=== PATIENT | female | born 1995 | race Caucasian/White ===

== ENCOUNTER 2017-04-09 00:14 | Inpatient (IN) | payer OTHER ==
[~2017-04-09] VITALS: Ht 157.5 cm; Wt 56.8 kg
[~2017-04-09 00:14] MED LIST: DOXY100C43 PO; METR250T PO; NO HOME MEDS; TRAM50TA2 PO
[2017-04-09] MEDS ORDERED: ondansetron/PF 4mg/2ml inj IV ONE (00:50)
[2017-04-09] MEDS ORDERED: morphine 4 MG/ML inj SYRINge IV ONE (00:50)
[2017-04-09] MEDS ORDERED: NO HOME MEDS (00:59)
[2017-04-09 01:13] LABS: BASOPHILS % (AUTO) 0.4 % (0-1); EOSINOPHILS % (AUTO) 0.2 % (0-6); HEMATOCRIT 38.1 % (35.0-45.0); HEMOGLOBIN 13.3 g/dl (12.0-16.0); LYMPHOCYTES % (AUTO) 14.4 % (21-51); MEAN CORPUSCULAR VOLUME 88.5 FL (78-98); MEAN PLATELET VOLUME 8.6 FL (7.4-10.4); MONOCYTES # (AUTO) 0.4 X10'3 (0-0.9); MONOCYTES % (AUTO) 5.5 % (2-12); NEUTROPHILS # (AUTO) 5.8 X10'3 (1.8-7.7); NEUTROPHILS % (AUTO) 79.5 % (42-75); PLATELET COUNT 219 X10'3 (140-440); RED CELL DISTRIBUTION WIDTH 12.5 % (11.5-14.5); WHITE BLOOD COUNT 7.2 X10'3 (4.5-11.0)
[2017-04-09 01:25] LABS: ALANINE AMINOTRANSFERASE 25 U/L (12-78); ALBUMIN 3.9 G/DL (3.4-5.0); ALBUMIN/GLOBULIN RATIO 1.3 (1.1-1.5); ALKALINE PHOSPHATASE 45 IU/L (20-180); ANION GAP 9 (8-16); ASPARTATE AMINO TRANSFERASE 34 U/L (10-37); BILIRUBIN,TOTAL 0.7 MG/DL (0.1-1.0); BLOOD UREA NITROGEN 8 MG/DL (7-18); BUN/CREATININE RATIO 9.1 (6.6-38.0); CALCIUM 8.5 MG/DL (8.5-10.1); CHLORIDE 107 MMOL/L (99-107); CREATININE 0.88 MG/DL (0.40-0.90); GLUCOSE 103 MG/DL (70-104); POTASSIUM 3.9 MMOL/L (3.5-5.1); SODIUM 141 MMOL/L (135-145); TOTAL CARBON DIOXIDE 25.4 MMOL/L (24-32); eGFR 82 ML/MIN
[2017-04-09] MEDS ORDERED: normal saline 1000ml 1,000 ML IV ONE (01:35)
[2017-04-09 01:59] LABS: TOTAL CELLS COUNTED 100
[2017-04-09 02:00] LABS: PLATELET ESTIMATE NORMAL
[2017-04-09] MEDS ORDERED: HYDROcodone/acetaminophen 10/325mg tab PO PRN (04:40)
[2017-04-09] MEDS ORDERED: diphenhydrAMINE 50 mg/ml inj IV PRN (04:40)
[2017-04-09] MEDS ORDERED: magnesium hydroxide 30ml (MOM) UD suspension PO PRN (04:40)
[2017-04-09] MEDS ORDERED: acetaminophen 325mg tablet PO PRN ×2 (04:40)
[2017-04-09] MEDS ORDERED: acetaminophen 650mg rectal suppository RC PRN (04:40)
[2017-04-09] MEDS ORDERED: morphine 2 MG/ML inj. syringe IV PRN ×2 (04:40)
[2017-04-09] MEDS ORDERED: mag hydrox/Alum hydrox/simeth 30ml oral suspension PO PRN (04:40)
[2017-04-09] MEDS ORDERED: HYDROcodone/acetaminophen 5mg/325mg tablet PO PRN (04:40)
[2017-04-09] MEDS ORDERED: diphenhydrAMINE 25mg capsule PO PRN (04:40)
[2017-04-09] MEDS ORDERED: bisacodyl 10mg suppository rectal RC PRN (04:40)
[2017-04-09] MEDS ORDERED: normal saline 1000ml 1,000 ML IVB ONE (04:46)
[2017-04-09] MEDS ORDERED: diatrozoate meglu/diatrozoate sod (37% iodine) 120ML oral solution PO ONE (04:50)
[2017-04-09] MEDS ORDERED: diatrozoate meglu/diatrozoate sod (37% iodine) 120ML oral solution ONE (05:02)
[2017-04-09] MEDS: normal saline 1000ml 1,000 ML IV SCH ×2 (05:10→16:17)
[2017-04-09 05:12] LABS: HEMOGLOBIN A1C 5.2 % (4.5-6.2)
[2017-04-09] MEDS: HYDROmorphone inj. 0.5 MG/0.5 ML DISP.SYRIN IV PRN ×5 (05:20→22:56)
[2017-04-09 05:21] LABS: CREATINE KINASE 385 U/L (26-192); LIPASE 90 U/L (73-393); MAGNESIUM 1.7 MG/DL (1.5-2.4); PHOSPHORUS 3.5 MG/DL (2.3-4.5)
[2017-04-09] MEDS: lactobacillus rhamnosus 10,000 MMU CELLS/CAPSULE PO SCH ×2 (07:30→17:41)
[2017-04-09] MEDS ORDERED: piperacillin/tazo 3.375gm/50ml 50 ML IV SCH (08:00)
[2017-04-09] MEDS ORDERED: piperacillin/tazo 4.5gm/100ml 100 ML IV SCH (08:00)
[2017-04-09] MEDS ORDERED: cefoxitin sod inj 2,000 MG in normal saline 100ml IV soln 100 ML IV SCH (08:00)
[2017-04-09] MEDS: pantoprazole 40 MG vial IV SCH (08:38)
[2017-04-09] MEDS: doxycycline hyclate 100mg tablet.DR PO SCH ×2 (08:38→17:41)
[2017-04-09] MEDS: docusate sod 100mg capsule PO SCH ×2 (08:38→20:08)
[2017-04-09 13:08] LABS: BASOPHILS % (AUTO) 0 % (0-1); EOSINOPHILS % (AUTO) 0 % (0-6); HEMATOCRIT 33.9 % (35.0-45.0); HEMOGLOBIN 11.6 g/dl (12.0-16.0); LYMPHOCYTES # (AUTO) 0.6 X10'3 (1.1-4.8); LYMPHOCYTES % (AUTO) 5.4 % (21-51); MEAN CORPUSCULAR HEMOGLOBIN 30.6 PG (27.0-31.0); MEAN CORPUSCULAR HGB CONC 34.3 % (33.0-36.5); MEAN CORPUSCULAR VOLUME 89.3 FL (78-98); MEAN PLATELET VOLUME 8.1 FL (7.4-10.4); MONOCYTES # (AUTO) 0.2 X10'3 (0-0.9); MONOCYTES % (AUTO) 1.4 % (2-12); NEUTROPHILS # (AUTO) 10.8 X10'3 (1.8-7.7); NEUTROPHILS % (AUTO) 93.2 % (42-75); PLATELET COUNT 175 X10'3 (140-440); RED CELL DISTRIBUTION WIDTH 13.3 % (11.5-14.5); WHITE BLOOD COUNT 11.5 X10'3 (4.5-11.0)
[2017-04-09 13:26] LABS: ALANINE AMINOTRANSFERASE 24 U/L (12-78); ALBUMIN 2.9 G/DL (3.4-5.0); ALKALINE PHOSPHATASE 32 IU/L (20-180); ANION GAP 9 (8-16); ASPARTATE AMINO TRANSFERASE 27 U/L (10-37); BLOOD UREA NITROGEN 7 MG/DL (7-18); BUN/CREATININE RATIO 9.3 (6.6-38.0); CALCIUM 7.8 MG/DL (8.5-10.1); CHLORIDE 108 MMOL/L (99-107); CREATININE 0.75 MG/DL (0.40-0.90); GLUCOSE 87 MG/DL (70-104); POTASSIUM 4.1 MMOL/L (3.5-5.1); SODIUM 139 MMOL/L (135-145); TOTAL CARBON DIOXIDE 21.6 MMOL/L (24-32); TOTAL PROTEIN 5.8 G/DL (6.4-8.2); eGFR > 90 ML/MIN
[2017-04-09 15:30] VITALS: BP 94/58
[2017-04-09 20:00] VITALS: BP 98/56
[2017-04-09] MEDS: ceFOXitin 2 GM ADDvantage bag 100 ML IV SCH (20:05)
[2017-04-09] MEDS ORDERED: temazepam 15mg capsule PO PRN (21:00)
[2017-04-09] MEDS ORDERED: normal saline 1000ml 1,000 ML IV SCH (21:15)
[2017-04-09] MEDS ORDERED: normal saline 500ml IV soln 500 ML IV ONE (21:30)
[2017-04-09] MEDS ORDERED: LORazepam 2 mg/ml vial IV PRN (22:50)
[2017-04-10] VITALS (19 sets, daily range): BP systolic 89–102; BP diastolic 44–56
[2017-04-10] MEDS: normal saline 1000ml 1,000 ML IV SCH ×7 (00:36→20:01)
[2017-04-10] MEDS: ceFOXitin 2 GM ADDvantage bag 100 ML IV SCH ×2 (02:24→08:00)
[2017-04-10] MEDS: HYDROmorphone inj. 0.5 MG/0.5 ML DISP.SYRIN IV PRN ×3 (03:20→13:41)
[2017-04-10 06:10] LABS: BASOPHILS % (AUTO) 0.1 % (0-1); EOSINOPHILS % (AUTO) 0 % (0-6); HEMATOCRIT 30.3 % (35.0-45.0); HEMOGLOBIN 10.6 g/dl (12.0-16.0); LYMPHOCYTES # (AUTO) 0.5 X10'3 (1.1-4.8); LYMPHOCYTES % (AUTO) 4.5 % (21-51); MEAN CORPUSCULAR HEMOGLOBIN 31.1 PG (27.0-31.0); MEAN CORPUSCULAR HGB CONC 34.9 % (33.0-36.5); MEAN CORPUSCULAR VOLUME 89.1 FL (78-98); MEAN PLATELET VOLUME 8.9 FL (7.4-10.4); MONOCYTES # (AUTO) 0.5 X10'3 (0-0.9); MONOCYTES % (AUTO) 4.1 % (2-12); NEUTROPHILS # (AUTO) 10.9 X10'3 (1.8-7.7); NEUTROPHILS % (AUTO) 91.3 % (42-75); PLATELET COUNT 173 X10'3 (140-440); RED CELL DISTRIBUTION WIDTH 13.2 % (11.5-14.5)
[2017-04-10 06:32] LABS: ALANINE AMINOTRANSFERASE 16 U/L (12-78); ALBUMIN 2.3 G/DL (3.4-5.0); ALBUMIN/GLOBULIN RATIO 0.8 (1.1-1.5); ALKALINE PHOSPHATASE 37 IU/L (20-180); ANION GAP 12 (8-16); ASPARTATE AMINO TRANSFERASE 21 U/L (10-37); BILIRUBIN,TOTAL 0.4 MG/DL (0.1-1.0); BLOOD UREA NITROGEN 8 MG/DL (7-18); BUN/CREATININE RATIO 9.4 (6.6-38.0); CALCIUM 7.7 MG/DL (8.5-10.1); CHLORIDE 108 MMOL/L (99-107); CHOL/HDL RATIO 1.9 (0.00-4.99); CHOLESTEROL 83 MG/DL (0-200); CREATINE KINASE 111 U/L (26-192); CREATININE 0.85 MG/DL (0.40-0.90); GLUCOSE 82 MG/DL (70-104); HDL CHOLESTEROL 43 MG/DL (35-60); LDL CHOLESTEROL 20 MG/DL (50-100); POTASSIUM 3.9 MMOL/L (3.5-5.1); SODIUM 139 MMOL/L (135-145); TOTAL CARBON DIOXIDE 18.7 MMOL/L (24-32); TOTAL PROTEIN 5.2 G/DL (6.4-8.2); TRIGLYCERIDES 51 MG/DL (20-135); eGFR 85 ML/MIN
[2017-04-10] MEDS ORDERED: BUPIVAcaine/PF 2.5 mg/ml (0.25%) 30ml vial ONE (06:32)
[2017-04-10 07:10] LABS: URINE HCG NEGATIVE (NEG)
[2017-04-10] MEDS: lactobacillus rhamnosus 10,000 MMU CELLS/CAPSULE PO SCH ×2 (07:30→17:30)
[2017-04-10] MEDS: doxycycline hyclate 100mg tablet.DR PO SCH ×2 (07:30→17:30)
[2017-04-10] MEDS ORDERED: sevoflurane 250ml liquid IH ONE (07:45)
[2017-04-10] MEDS ORDERED: midazolam 2 mg/2 ml injection ONE (07:46)
[2017-04-10] MEDS ORDERED: fentaNYL/PF 50MCG/1 ML 2ML syringe ONE ×2 (07:46→08:33)
[2017-04-10] MEDS ORDERED: rocuronium 10mg/ml inj IV ONE (07:55)
[2017-04-10] MEDS ORDERED: propofol inj 20 ML IV ONE (07:55)
[2017-04-10] MEDS ORDERED: LIDOcaine 2% (20mg/ml) 5ml vial ONE (07:55)
[2017-04-10] MEDS: docusate sod 100mg capsule PO SCH ×2 (08:00→20:00)
[2017-04-10] MEDS: pantoprazole 40 MG vial IV SCH (08:00)
[2017-04-10] MEDS ORDERED: metroNIDAZOLE-Flagyl 500mg/NS 100ML IVPB IV STA (08:22)
[2017-04-10] MEDS ORDERED: neostigmine methylsulfate 1 MG/ML 10ml vial ONE (08:26)
[2017-04-10] MEDS ORDERED: ondansetron/PF 4mg/2ml inj ONE (08:26)
[2017-04-10] MEDS ORDERED: glycopyrrolate 0.2mg/ml inj ONE (08:26)
[2017-04-10] MEDS ORDERED: morphine 2 MG/ML inj. syringe IV PRN ×2 (09:15)
[2017-04-10] MEDS ORDERED: meperidine/PF 50mg/ml syringe IV PRN ×3 (09:15)
[2017-04-10] MEDS ORDERED: proCHLORperazine 10 MG/2 ml inj IV PRN (09:15)
[2017-04-10] MEDS ORDERED: ringers solution, lacted 1,000 ML IV SCH (09:15)
[2017-04-10] MEDS ORDERED: ondansetron/PF 4mg/2ml inj IV PRN (09:15)
[2017-04-10] MEDS: metroNIDAZOLE-Flagyl 500mg/NS 100 ML IV SCH ×2 (13:50→19:58)
[2017-04-10] MEDS: HYDROmorphone/NS 1 mg/ml CADD 50 ML IV SCH ×3 (19:10→23:00)
[2017-04-11] VITALS: BP 100/69
[2017-04-11] MEDS: HYDROmorphone/NS 1 mg/ml CADD 50 ML IV SCH ×12 (01:00→22:56)
[2017-04-11] MEDS: metroNIDAZOLE-Flagyl 500mg/NS 100 ML IV SCH ×3 (02:00→14:23)
[2017-04-11] MEDS: normal saline 1000ml 1,000 ML IV SCH ×3 (04:22→22:48)
[2017-04-11 05:00] VITALS: BP 101/52
[2017-04-11 06:01] LABS: BASOPHILS % (AUTO) 0.2 % (0-1); EOSINOPHILS % (AUTO) 0.1 % (0-6); HEMATOCRIT 30.7 % (35.0-45.0); HEMOGLOBIN 10.4 g/dl (12.0-16.0); LYMPHOCYTES # (AUTO) 0.9 X10'3 (1.1-4.8); LYMPHOCYTES % (AUTO) 8.4 % (21-51); MEAN CORPUSCULAR HEMOGLOBIN 30.4 PG (27.0-31.0); MEAN CORPUSCULAR HGB CONC 33.8 % (33.0-36.5); MEAN CORPUSCULAR VOLUME 89.9 FL (78-98); MONOCYTES # (AUTO) 0.6 X10'3 (0-0.9); MONOCYTES % (AUTO) 6.2 % (2-12); NEUTROPHILS # (AUTO) 8.7 X10'3 (1.8-7.7); NEUTROPHILS % (AUTO) 85.1 % (42-75); PLATELET COUNT 179 X10'3 (140-440); RED BLOOD COUNT 3.42 X10'6 (4.20-5.60); RED CELL DISTRIBUTION WIDTH 13.3 % (11.5-14.5); WHITE BLOOD COUNT 10.3 X10'3 (4.5-11.0)
[2017-04-11 06:41] LABS: ALANINE AMINOTRANSFERASE 19 U/L (12-78); ALBUMIN/GLOBULIN RATIO 0.6 (1.1-1.5); ALKALINE PHOSPHATASE 66 IU/L (20-180); ANION GAP 14 (8-16); ASPARTATE AMINO TRANSFERASE 20 U/L (10-37); BILIRUBIN,TOTAL 0.4 MG/DL (0.1-1.0); BLOOD UREA NITROGEN 8 MG/DL (7-18); BUN/CREATININE RATIO 12.3 (6.6-38.0); CALCIUM 7.2 MG/DL (8.5-10.1); CHLORIDE 108 MMOL/L (99-107); CREATININE 0.65 MG/DL (0.40-0.90); GLUCOSE 74 MG/DL (70-104); POTASSIUM 3.7 MMOL/L (3.5-5.1); SODIUM 138 MMOL/L (135-145); TOTAL CARBON DIOXIDE 15.6 MMOL/L (24-32); TOTAL PROTEIN 5.1 G/DL (6.4-8.2); eGFR > 90 ML/MIN
[2017-04-11] MEDS: doxycycline hyclate 100mg tablet.DR PO SCH ×2 (08:47→18:51)
[2017-04-11] MEDS: docusate sod 100mg capsule PO SCH ×2 (08:47→20:26)
[2017-04-11] MEDS: lactobacillus rhamnosus 10,000 MMU CELLS/CAPSULE PO SCH ×2 (08:47→18:52)
[2017-04-11] MEDS: pantoprazole 40 MG vial IV SCH (08:47)
[2017-04-11] MEDS: ondansetron/PF 4mg/2ml inj IV PRN ×2 (17:21→22:48)
[2017-04-11 20:00] VITALS: BP 115/65
[2017-04-11] MEDS: metroNIDAZOLE 500mg tablet PO SCH (20:26)
[2017-04-12] VITALS: BP 111/72
[2017-04-12] MEDS: HYDROmorphone/NS 1 mg/ml CADD 50 ML IV SCH ×12 (01:00→23:00)
[2017-04-12] MEDS: metroNIDAZOLE 500mg tablet PO SCH ×3 (01:05→15:24)
[2017-04-12 06:28] LABS: BASOPHILS % (AUTO) 0.2 % (0-1); EOSINOPHILS # (AUTO) 0.1 X10'3 (0-0.9); EOSINOPHILS % (AUTO) 1.2 % (0-6); HEMATOCRIT 31.8 % (35.0-45.0); HEMOGLOBIN 10.9 g/dl (12.0-16.0); LYMPHOCYTES # (AUTO) 0.8 X10'3 (1.1-4.8); LYMPHOCYTES % (AUTO) 8.9 % (21-51); MEAN CORPUSCULAR HEMOGLOBIN 30.4 PG (27.0-31.0); MEAN CORPUSCULAR HGB CONC 34.4 % (33.0-36.5); MEAN CORPUSCULAR VOLUME 88.4 FL (78-98); MEAN PLATELET VOLUME 8.3 FL (7.4-10.4); MONOCYTES # (AUTO) 0.9 X10'3 (0-0.9); MONOCYTES % (AUTO) 9.4 % (2-12); NEUTROPHILS # (AUTO) 7.6 X10'3 (1.8-7.7); NEUTROPHILS % (AUTO) 80.3 % (42-75); PLATELET COUNT 208 X10'3 (140-440); RED BLOOD COUNT 3.59 X10'6 (4.20-5.60); RED CELL DISTRIBUTION WIDTH 13.4 % (11.5-14.5); WHITE BLOOD COUNT 9.5 X10'3 (4.5-11.0)
[2017-04-12 07:05] LABS: ALANINE AMINOTRANSFERASE 20 U/L (12-78); ALBUMIN 2.1 G/DL (3.4-5.0); ALBUMIN/GLOBULIN RATIO 0.6 (1.1-1.5); ALKALINE PHOSPHATASE 63 IU/L (20-180); ANION GAP 16 (8-16); ASPARTATE AMINO TRANSFERASE 19 U/L (10-37); BILIRUBIN,TOTAL 0.3 MG/DL (0.1-1.0); BLOOD UREA NITROGEN 6 MG/DL (7-18); BUN/CREATININE RATIO 9.5 (6.6-38.0); CALCIUM 7.5 MG/DL (8.5-10.1); CHLORIDE 108 MMOL/L (99-107); CREATININE 0.63 MG/DL (0.40-0.90); GLUCOSE 81 MG/DL (70-104); POTASSIUM 3.5 MMOL/L (3.5-5.1); SODIUM 138 MMOL/L (135-145); TOTAL PROTEIN 5.4 G/DL (6.4-8.2); eGFR > 90 ML/MIN
[2017-04-12] MEDS ORDERED: HYDROcodone/acetaminophen 5mg/325mg tablet PO PRN (07:10)
[2017-04-12 07:23] VITALS: BP 105/64
[2017-04-12] MEDS ORDERED: pantoprazole 40mg Tablet.DR PO SCH (07:30)
[2017-04-12 07:32] LABS: TOTAL CARBON DIOXIDE 14.1 MMOL/L (24-32)
[2017-04-12] MEDS: ondansetron/PF 4mg/2ml inj IV PRN ×3 (09:17→20:01)
[2017-04-12] MEDS: pantoprazole 40 MG vial IV SCH (09:17)
[2017-04-12] MEDS: doxycycline hyclate 100mg tablet.DR PO SCH ×2 (09:24→17:15)
[2017-04-12] MEDS: docusate sod 100mg capsule PO SCH ×2 (09:24→20:00)
[2017-04-12] MEDS: lactobacillus rhamnosus 10,000 MMU CELLS/CAPSULE PO SCH ×2 (09:24→20:52)
[2017-04-12 11:35] VITALS: BP 95/59
[2017-04-12] MEDS: normal saline 1000ml 1,000 ML IV SCH (12:19)
[2017-04-12 20:00] VITALS: BP 109/66
[2017-04-13] VITALS: BP 97/61
[2017-04-13] MEDS: HYDROmorphone/NS 1 mg/ml CADD 50 ML IV SCH ×6 (01:00→11:00)
[2017-04-13] MEDS: metroNIDAZOLE-Flagyl 500mg/NS 100 ML IV SCH ×4 (02:13→19:31)
[2017-04-13 05:19] LABS: BASOPHILS % (AUTO) 0.1 % (0-1); EOSINOPHILS # (AUTO) 0.1 X10'3 (0-0.9); EOSINOPHILS % (AUTO) 1.9 % (0-6); HEMATOCRIT 31.9 % (35.0-45.0); LYMPHOCYTES % (AUTO) 16.2 % (21-51); MEAN CORPUSCULAR HEMOGLOBIN 30.7 PG (27.0-31.0); MEAN CORPUSCULAR HGB CONC 34.5 % (33.0-36.5); MEAN CORPUSCULAR VOLUME 88.8 FL (78-98); MEAN PLATELET VOLUME 7.5 FL (7.4-10.4); MONOCYTES # (AUTO) 0.9 X10'3 (0-0.9); MONOCYTES % (AUTO) 13.3 % (2-12); NEUTROPHILS # (AUTO) 4.4 X10'3 (1.8-7.7); NEUTROPHILS % (AUTO) 68.5 % (42-75); PLATELET COUNT 257 X10'3 (140-440); RED BLOOD COUNT 3.59 X10'6 (4.20-5.60); RED CELL DISTRIBUTION WIDTH 13.1 % (11.5-14.5); WHITE BLOOD COUNT 6.4 X10'3 (4.5-11.0)
[2017-04-13 06:03] LABS: ALBUMIN 2.2 G/DL (3.4-5.0); ALBUMIN/GLOBULIN RATIO 0.6 (1.1-1.5); ALKALINE PHOSPHATASE 48 IU/L (20-180); ANION GAP 18 (8-16); ASPARTATE AMINO TRANSFERASE 19 U/L (10-37); BILIRUBIN,TOTAL 0.3 MG/DL (0.1-1.0); BLOOD UREA NITROGEN 6 MG/DL (7-18); BUN/CREATININE RATIO 8.7 (6.6-38.0); CHLORIDE 109 MMOL/L (99-107); CREATININE 0.69 MG/DL (0.40-0.90); GLUCOSE 83 MG/DL (70-104); POTASSIUM 3.4 MMOL/L (3.5-5.1); SODIUM 141 MMOL/L (135-145); TOTAL PROTEIN 5.8 G/DL (6.4-8.2); eGFR > 90 ML/MIN
[2017-04-13 06:10] LABS: TOTAL CARBON DIOXIDE 14.5 MMOL/L (24-32)
[2017-04-13 06:33] LABS: ALANINE AMINOTRANSFERASE 14 U/L (12-78)
[2017-04-13] MEDS: pantoprazole 40 MG vial IV SCH (07:56)
[2017-04-13] MEDS: docusate sod 100mg capsule PO SCH ×2 (07:57→19:33)
[2017-04-13] MEDS: lactobacillus rhamnosus 10,000 MMU CELLS/CAPSULE PO SCH ×2 (07:57→19:31)
[2017-04-13 08:00] VITALS: BP 99/61
[2017-04-13] MEDS ORDERED: DOXYCYCLINE 100 MG in NORMAL SALINE 100ml IV.SOLN IV SCH (08:00)
[2017-04-13] MEDS: ondansetron/PF 4mg/2ml inj IV PRN ×3 (09:49→21:15)
[2017-04-13 11:00] VITALS: BP 108/62
[2017-04-13] MEDS ORDERED: normal saline 1000ml 1,000 ML IV SCH (12:30)
[2017-04-13] MEDS ORDERED: CADD PCA waste documentation MC SCH (12:55)
[2017-04-13] MEDS ORDERED: magnesium 2GM in 50ml NS 50 ML IV PRN (13:05)
[2017-04-13] MEDS ORDERED: potassium Cl 20 mEq SR tablet PO PRN (13:05)
[2017-04-13] MEDS ORDERED: potassium Cl 40MEQ/NS 500ml 500 ML IV PRN ×2 (13:05)
[2017-04-13] MEDS ORDERED: magnesium 4gm in 100ml NS 100 ML IV PRN (13:05)
[2017-04-13] MEDS ORDERED: magnesium Cl slow-release 64mg tablet PO PRN (13:05)
[2017-04-13] MEDS: potassium Cl 20 mEq SR tablet PO PRN ×2 (13:39→17:41)
[2017-04-13] MEDS: ceFOXitin 1 GM ADDVANTAGE BAG 1,000 MG in normal saline 100ml IV soln 100 ML IV SCH (16:59)
[2017-04-13 18:00] VITALS: BP 108/64
[2017-04-13] MEDS: HYDROcodone/acetaminophen 5mg/325mg tablet PO PRN (21:12)
[2017-04-14] VITALS: BP 100/57
[2017-04-14] MEDS: ceFOXitin 1 GM ADDVANTAGE BAG 1,000 MG in normal saline 100ml IV soln 100 ML IV SCH ×2 (00:17→08:02)
[2017-04-14] MEDS: metroNIDAZOLE-Flagyl 500mg/NS 100 ML IV SCH ×2 (02:34→09:16)
[2017-04-14] MEDS: ondansetron/PF 4mg/2ml inj IV PRN (02:44)
[2017-04-14] MEDS: HYDROcodone/acetaminophen 5mg/325mg tablet PO PRN (02:56)
[2017-04-14 05:22] LABS: BASOPHILS % (AUTO) 0.3 % (0-1); EOSINOPHILS # (AUTO) 0.2 X10'3 (0-0.9); EOSINOPHILS % (AUTO) 2.7 % (0-6); HEMATOCRIT 31.6 % (35.0-45.0); HEMOGLOBIN 10.8 g/dl (12.0-16.0); LYMPHOCYTES # (AUTO) 1.2 X10'3 (1.1-4.8); MEAN CORPUSCULAR HEMOGLOBIN 30.3 PG (27.0-31.0); MEAN CORPUSCULAR HGB CONC 34.3 % (33.0-36.5); MEAN CORPUSCULAR VOLUME 88.5 FL (78-98); MEAN PLATELET VOLUME 7.3 FL (7.4-10.4); MONOCYTES # (AUTO) 0.9 X10'3 (0-0.9); MONOCYTES % (AUTO) 16.6 % (2-12); NEUTROPHILS # (AUTO) 3.3 X10'3 (1.8-7.7); NEUTROPHILS % (AUTO) 59.4 % (42-75); PLATELET COUNT 329 X10'3 (140-440); RED BLOOD COUNT 3.57 X10'6 (4.20-5.60); RED CELL DISTRIBUTION WIDTH 13.3 % (11.5-14.5); WHITE BLOOD COUNT 5.6 X10'3 (4.5-11.0)
[2017-04-14 06:13] LABS: ALANINE AMINOTRANSFERASE 22 U/L (12-78); ALBUMIN 2.3 G/DL (3.4-5.0); ALBUMIN/GLOBULIN RATIO 0.7 (1.1-1.5); ALKALINE PHOSPHATASE 45 IU/L (20-180); ANION GAP 14 (8-16); ASPARTATE AMINO TRANSFERASE 23 U/L (10-37); BILIRUBIN,TOTAL 0.3 MG/DL (0.1-1.0); BLOOD UREA NITROGEN 6 MG/DL (7-18); BUN/CREATININE RATIO 9.5 (6.6-38.0); CHLORIDE 109 MMOL/L (99-107); CREATININE 0.63 MG/DL (0.40-0.90); GLUCOSE 95 MG/DL (70-104); POTASSIUM 3.3 MMOL/L (3.5-5.1); SODIUM 140 MMOL/L (135-145); TOTAL CARBON DIOXIDE 17.3 MMOL/L (24-32); TOTAL PROTEIN 5.8 G/DL (6.4-8.2); eGFR > 90 ML/MIN
[2017-04-14 07:00] VITALS: BP 100/50
[2017-04-14] MEDS: docusate sod 100mg capsule PO SCH (08:00)
[2017-04-14] MEDS: lactobacillus rhamnosus 10,000 MMU CELLS/CAPSULE PO SCH (09:11)
[2017-04-14] MEDS: pantoprazole 40 MG vial IV SCH (09:11)
[2017-04-14] MEDS ORDERED: HYDR-569 PO (10:09)
[2017-04-14] MEDS ORDERED: metroNIDAZOLE 500mg tablet PO SCH (14:00)
== END 2017-04-14 13:09 | disposition home or self-care (01) | DRG 339 ==
LOC: ER 00:15 → ED HOLD 04:36 → SUR 3N 14:50
PROVIDERS: ADMIT Family Medicine; ATTEND Surgery
PROC: 0DTJ4ZZ Resection of Appendix, Percutaneous Endoscopic Approach (ICD-10-PCS; principal; 2017-04-10 07:45)
DX: K35.2 Acute appendicitis with generalized peritonitis (principal); M62.82 Rhabdomyolysis; E73.9 Lactose intolerance, unspecified; E86.0 Dehydration; E86.1 Hypovolemia; K31.9 Disease of stomach and duodenum, unspecified; N73.9 Female pelvic inflammatory disease, unspecified; K52.9 Noninfective gastroenteritis and colitis, unspecified; Z79.899 Other long term (current) drug therapy
CPT/HCPCS: 96361; 96374; 96375; 99285; Z7506; 36415; 74022; 74176; 80053; 80061; 81025; 82550; 83036; 83605; 83690; 83735; 83880; 84100; 84145; 84443; 85025; 85610; 85651; 87070; 87210; 87491; A4315; A7000; C9113; J0694; J1170; J2001; J2250; J2270; J2405; J2543; J2704; J2710; J3010; J3490; J7030; J7120; Q9963